=== PATIENT | male | born 1960 | race Caucasian/White ===

== ENCOUNTER 2024-01-25 19:32 | Emergency (ER) | payer BC, SELFPAY ==
[2024-01-25 19:36] VITALS: BP 176/104
[2024-01-25 20:02] LABS: % Basophils 0.9 % (0-2); % Eosinophils 4.1 % (0-6); % Immature Granulocytes 0.2 % (0-0.5); % Lymphocytes 26.2 % (20.5-51.1); % Monocytes 7.4 % (1.7-9.3); % Neutrophils 61.2 % (42.2-75.2); Absolute Basophils 0.1 10^3/uL (0-0.2); Absolute Eosinophils 0.2 10^3/uL (0-0.7); Absolute Lymphocytes 1.4 10^3/uL (1.2-3.4); Absolute Monocytes 0.4 10^3/uL (0.1-0.6); Absolute Neutrophils 3.3 10^3/uL (1.4-6.5); Hematocrit 45.7 % (39.0-52.0); Hemoglobin 16.1 g/dL (13.0-18.0); Mean Corp Hgb Conc. 35.2 g/dL (33.0-37.0); Mean Corpuscular Hgb 31.3 pg (27.0-31.0); Mean Corpuscular Volume 88.7 fL (80.0-94.0); Mean Platelet Volume 9.5 fL (7.4-10.4); Nucleated Red Blood Cells % 0 % (-); Platelet Count 189 10^3/uL (130-400); Red Blood Cell Count 5.15 10^6/uL (4.70-6.10); Red Cell Dist. Width 11.9 % (11.5-14.5); White Blood Cell Count 5.4 10^3/uL (4.8-10.8)
[2024-01-25 20:18] LABS: ALT (SGPT) 25 U/L (0-50); AST (SGOT) 32 U/L (17-59); Albumin 4.3 g/dl (3.5-5.0); Alkaline Phosphatase 57 U/L (38-126); Blood Urea Nitrogen 20 mg/dl (9-20); Calcium 9.1 mg/dl (8.4-10.2); Carbon Dioxide 28 mmol/L (22-30); Chloride 105 mmol/L (98-107); Glucose 97 mg/dl (70-99); Potassium 4.3 mmol/L (3.5-5.1); Sodium 144 mmol/L (135-145); Total Bilirubin 0.6 mg/dl (0.2-1.3); Total Protein 7.1 g/dl (6.3-8.2); eGFR > 60.00
--- NOTE | 2024-01-25 22:20 | ED.GENMED ---
History of Present Illness
<CHERISE Love - Last Filed: 01/25/24 22:36>
General
Chief Complaint: Rectal Bleeding
Source: patient
Exam Limitations: none
Time Seen by Provider: 01/25/24 21:57
Nursing documentation reviewed up to this point in time: agreed with
History of Present Illness
History of Present Illness:
Pt is a 63 y/o M with a pmhx of prostate cancer x 4 years who reports 1 episode of bright red stool today. The pt reported that earlier today he was doing yard work when he felt an episode of sudden sharp lower abdominal pain. Shortly after, he had
a bowel movement and noticed bright red blood in his stool and in the toilet. He reported a similar episode 20-30 years ago and was told that he had a hemorrhoid. Denies fever, headache, lightheadedness, constipation, diarrhea, changes in weight,
abdominal bloating, and any abdominal pain at this time. His last meal was at 11:30 AM and his last bowel movement was at 7:00 PM.
The pt has a pmhx of prostate cancer that was diagnosed 4 years ago and was treated with radiation. In September, he had an episode of hematuria which warranted a CT scan of his abdomen and pelvis which was performed at [facility]. The pt stated that at
the time he was told that he had kidney stones and intestinal polyps. The pt reported that he is recovering from a cold that started on , for which he started taking Nyquil on Wednesday. Otherwise, he does not take any other medications.
Past History
<CHERISE Love - Last Filed: 01/25/24 22:36>
Past History
ED Past Medical History: Other (Prostate cancer)
ED Past Surgical History: Urological (Prostatectomy)
Social History
Tobacco: Non-smoker
Alcohol: None
Drug: None
Personal:
Living: with family
Employment: Employed
Family History
Family History: Other (nc )
Review of Systems
<CHERISE Love - Last Filed: 01/25/24 22:36>
Review of Systems
Allergies reviewed?: Yes
Constitutional: Reports no symptoms
EENT: Reports no symptoms
Respiratory: Reports no symptoms
Cardiac: Reports no symptoms
ABD/GI: Reports abdominal pain and bloody stools
: Reports no symptoms
Musculoskeletal: Reports no symptoms
Skin: Reports no symptoms
Neurological: Reports no symptoms
Endocrine: Reports no symptoms
Hematologic/Lymphatic: Reports no symptoms
Psychiatric: Reports no symptoms
Phy Exam
<CHERISE Love - Last Filed: 01/25/24 22:36>
General Physical Exam
General Presentation: well appearing and no apparent distress
General age: appears stated age
General Skin: warm and dry
General Habitus: normal
General Mental: alert
General Hydration: appears well hydrated
ENT Exam
ENT Exam: EOMI, TM's normal, pharynx normal and neck supple
Eye Exam
Eye Exam: PERRL, EOMI, cornea clear and conjunctiva normal
Cardiovascular Exam
Cardiovascular Exam: regular rate/rhythm and normal peripheral pulses
Pulmonary Exam
Pulmonary Exam: lungs clear, no respiratory distress, no rales, chest non tender, no crackles, no rhonchi, no stridor, no wheezing and no cough
Gastrointestinal Exam
Gastrointestinal Exam: normal bowel sounds, non tender, soft, no organomegaly, no pulsatile mass, non distended, no abdominal hernia, no bruit, no indwelling devices, no inguinal hernia and no masses
Rectal Exam: normal external exam and normal sphincter tone
Stool: brown
Guaiac Status: negative
Neurological Exam
Neurological Exam: alert, oriented x3, CN II-XII intact, no motor deficits, normal reflexs, no sensory deficits and speech normal
Musculoskeletal Exam
Musculoskeletal Exam: full ROM, no edema and neuro vasc intact
Skin Exam
Skin Exam: normal color, warm/dry, no rash and no petechia
Psychiatric Exam
Psychiatric Exam: normal mood/affect
Course
<CHERISE Love - Last Filed: 01/25/24 22:36>
Orders/Labs/Results
Orders:
Orders
01/25/24 19:43
Type+Screen Urgent
CBC/With Diff [Complete Blood Count/With Diff] Urgent
CMP [Comprehensive Metabolic Panel] Urgent
01/25/24 22:35
Abdomen/Pelvis w Contrast CT [CT Abd/pelvis W Iv Cont] Urgent
Comment:
Reason For Exam: abdominal pain and bright red stool
Abnormal Lab Results
01/25/24
19:43
MCH 31.3 H pg
(27.0-31.0)
01/25/24 19:43
01/25/24 19:43
Vital Signs
Initial and Last Documented VS:
Initial Vital Signs
Temp Pulse Resp BP Pulse Ox
99.3 F 75 17 176/104 97
01/25/24 19:36 01/25/24 19:36 01/25/24 19:36 01/25/24 19:36 01/25/24 19:36
Last Documented Vital Signs
Temp Pulse Resp BP Pulse Ox
99.3 F 68 18 112/61 98
01/25/24 19:36 01/26/24 00:22 01/25/24 23:02 01/26/24 00:22 01/26/24 00:22
<Jesse Sexton DO - Last Filed: 01/26/24 01:07>
Orders/Labs/Results
Orders:
Orders
01/25/24 19:43
Type+Screen Urgent
CBC/With Diff [Complete Blood Count/With Diff] Urgent
CMP [Comprehensive Metabolic Panel] Urgent
01/25/24 22:35
Abdomen/Pelvis w Contrast CT [CT Abd/pelvis W Iv Cont] Urgent
Comment:
Reason For Exam: abdominal pain and bright red stool
Abnormal Lab Results
01/25/24
19:43
MCH 31.3 H pg
(27.0-31.0)
01/25/24 19:43
01/25/24 19:43
Vital Signs
Initial and Last Documented VS:
Initial Vital Signs
Temp Pulse Resp BP Pulse Ox
99.3 F 75 17 176/104 97
01/25/24 19:36 01/25/24 19:36 01/25/24 19:36 01/25/24 19:36 01/25/24 19:36
Last Documented Vital Signs
Temp Pulse Resp BP Pulse Ox
99.3 F 68 18 112/61 98
01/25/24 19:36 01/26/24 00:22 01/25/24 23:02 01/26/24 00:22 01/26/24 00:22
<CHERISE Love - Last Filed: 01/25/24 22:36>
MDM/Problems Addressed
Differential Diagnosis Includes:
Internal hemorrhoid
Anal fissure
Diverticulitis
<CHERISE Love - Last Filed: 01/25/24 22:36>
*Critical Care Note
Total Time (30-74mins, 75-104mins- exclusive of procedures): Not Applicable
<Jesse Sexton DO - Last Filed: 01/26/24 01:07>
Update Note
Update Note:
CT ABDOMEN AND PELVIS WITH IV CONTRAST
IMPRESSION
No specific findings to account for patient's bloody stools. If symptoms persist or progress consider further workup by nuclear medicine bleeding scan and/or endoscopy. No evidence of inflammation or free air. Diverticulosis without evidence of
diverticulitis.
Normal appendix
Nonobstructing stones in the kidneys bilaterally. No hydronephrosis or hydroureter.
Small cyst right kidney. Gallstones.
ED Attending Note
<CHERISE Love - Last Filed: 01/25/24 22:36>
-
Portions of this chart may have been created with voice recognition software.� Occasional wrong word or��sound alike� substitutions may have occurred due to the inherent limitations of voice recognition software.
<Jesse Sexton DO - Last Filed: 01/26/24 01:07>
ED Attending Note
Patient seen and examined by attending physician: Yes
I performed the substantive portion of visit, reviewed & personally made and approve the management plan that is documented in note by myself or MARTHA.: Yes
ED Attending Note:
Pleasant 63-year-old male presents with bright red blood per rectum. He states that he had 2 bowel movements where the toilet bowl was dotted with bright red blood. Patient does report some abdominal cramping. He was outside doing yard work when
he felt the urge to use the toilet. He states that is when he noticed the bright red blood in the bowl. He states that he had similar symptoms about 30 years ago. He was evaluated and diagnosed with an hemorrhoid. Patient does have a history of
prostate cancer and treated with radiation. Patient was seen in conjunction with the PA student. I have reviewed and agree with the history and treatment plan presented. On my independent physical exam, patient is awake, alert, and oriented x3,
no acute distress. Heart is regular rate and rhythm. Lungs are clear to auscultation bilaterally. Abdomen soft nondistended. Slightly hyperactive bowel sounds noted.
Plan is CT scan.
Initial rectal exam was heme-negative. Will consider retesting if patient has continued pain.
01/26/2024 0058 AM patient rectal exam performed in the presence of nursing was negative at this time. This is the second Hemoccult test. There is a hemorrhoid at the 6 o'clock position. There is no obvious bleeding. CT scan was negative.
Patient being discharged home to follow-up with colorectal.
Discharge Plan
Departure
Patient Disposition: Home (Routine Discharge)
Date of Disposition: 01/26/24
Time of Disposition: 01:05
Patient with high blood pressure during this ER visit?: No
Condition: Good
Discharge Problem:
Hemorrhoid, Bright red rectal bleeding
Instructions: Hemorrhoids ED, BLOOD PRESSURE
Prescriptions:
No Action
NyQuil D 6.66-46-37-500 mg/15 mL Liquid
30 ml PO HSPRN PRN (Reason: sleep)
Referrals:
Chito Dockery MD [Active] -
Trey Kenney MD [Family Provider] -
Activity Restrictions/Additional Instructions:
It was a pleasure meeting you and taking part in your care. We hope for your continued healing and wellness.
Please read discharge instructions in their entirety. However, they are for general education and may not describe your exact diagnosis at discharge. Information on your ER visit and medical conditions were discussed with you along with appropriate
follow up information...
If indicated, please take your medications as instructed and indicated on discharge paperwork.
Please schedule a follow up appointment as directed. Call to schedule an appointment
Please return to the emergency department with ANY change in, persisting, or worsening of symptoms. If any of your symptoms do not improve, or persist, or become more severe within 6-12 hours, please return to the emergency department for further
care.
Please return to the emergency department if you develop a headache, neck pain/stiffness, fever greater than 100.4F, chest pain, shortness of breath, persistent nausea, vomiting, slurred speech, difficulty walking, numbness/tingling, weakness, signs
of infection or any other symptoms that are worrisome to you.
If you have any questions or concerns please do not hesitate to call the Hospital at or E-mail me directly at [email or web address]
Interventions
Interventions:
*Risk Screen - Suicide Last Done: 01/25/24 19:36
*General Assessment Last Done: 01/25/24 19:36
*Neglect/Abuse Screening Last Done: 01/25/24 19:36
ED- Fall Risk Assessment Last Done: 01/25/24 23:09
*ED COVID-19 Vaccine History Last Done: 01/25/24 19:36
QL-Uhrhjt-Wfprlglwlo Assessment Last Done: 01/25/24 22:30
ED- Cardiac Assessment Last Done: 01/25/24 22:30
ED- Pulmonary Assessment Last Done: 01/25/24 22:30
Discharge Date and Time
Print Language: CENTRAL AFRICAN
[2024-01-25 23:02] VITALS: BP 120/83
[2024-01-26 00:22] VITALS: BP 112/61
[2024-01-26 01:04] VITALS: BP 125/82
== END 2024-01-26 01:37 | disposition home or self-care (01) ==
LOC: EMR 19:32
PROVIDERS: Emergency Medicine; EMERGENCY PHYSICIAN Student in an Organized Health Care Education/Training Program; FAMILY PHYSICIAN Internal Medicine
DX: K64.9 Unspecified hemorrhoids (principal); K62.5 Hemorrhage of anus and rectum; Z85.46 Personal history of malignant neoplasm of prostate; Z87.19 Personal history of other diseases of the digestive system; Z90.79 Acquired absence of other genital organ(s); Z92.3 Personal history of irradiation
CPT/HCPCS: 99284; 74177; 80053; 85025; 86850; 86900; 86901; Q9967

== ENCOUNTER → 2024-12-15 10:15 | Outpatient (REF) | payer BC, SELFPAY | LOC: HWRAD 10:15 | PROVIDERS: ATTENDING PHYSICIAN Nurse Practitioner Acute Care | DX: R06.02 Shortness of breath (principal) | CPT/HCPCS: 71046 ==

== ENCOUNTER → 2025-01-05 11:14 | Outpatient (REF) | payer BC, SELFPAY | LOC: HWRAD 11:14 | PROVIDERS: ATTENDING PHYSICIAN Nurse Practitioner Acute Care | DX: R91.8 Other nonspecific abnormal finding of lung field (principal) | CPT/HCPCS: 71046 ==